=== PATIENT | female | born 1935 | race Caucasian/White ===

== ENCOUNTER 2023-06-29 21:50 | Emergency (ER) | payer MEDICARE, SELFPAY ==
[2023-06-29 22:14] VITALS: BP 120/68; PULSE 88; RESP 16; TEMP 36.7; O2SAT 97; BMI 29.2
--- NOTE | 2023-06-30 00:18 | ECG_ITS ---
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
--- NOTE | 2023-06-30 00:19 | XR_ITS ---
The [address] [address] Patient Name: AFSANEH MCCULLOUGH MRN: [id number] date: 1935 Sex: F Assigned Patient Location: ER Current Patient Location: ER Accession/Order Number: [id number] Exam Date: 06/30/2023 00:35 Report Date: 06/30/2023 00:50 At the request of: JOHN MARKER Procedure: XR chest 1V EXAM: XR chest 1V HISTORY: SOB COMPARISON: None. TECHNIQUE: One view of the chest was obtained. FINDINGS: The cardiac silhouette is enlarged. Aortic atherosclerotic disease is seen. The lungs are clear. There is no significant pneumothorax or pleural effusion. No acute osseous abnormality is seen. XR/XR chest 1V IMPRESSION: 1. Enlarged cardiac silhouette with clear lungs. Electronically authenticated by: Yanick CANAS Date: 06/30/2023 00:50
--- NOTE | 2023-06-30 00:20 | ED_ITS ---
HPI - General Adult General Chief complaint: Recheck/Abnormal Lab/Rx Stated complaint: LOWER EXTREMITY EDEMA, FLUID BUILD-UP Time Seen by Provider: 06/29/23 22:01 Source: patient and family Mode of arrival: Wheelchair Limitations comment: Pt hard of hearing History of Present Illness HPI narrative: His 87-year-old female with a history of congestive heart failure/fluid overload who is currently on 40 mg of torsemide daily and metolazone 3 times a week is brought to the emergency department by her daughter for evaluation of increased lower extremity swelling. The patient states she is having some leaking from the posterior aspect of her left lower leg and she has bruising to the right lateral leg which is new for her. The patient states she started noticing that her legs were leaking several days ago and her recliner chair was wet. She states that she has swelling from her feet all the way to her mid abdomen. She denies any nausea vomiting or diarrhea. She denies any chest pain. She had a medication change approximately 3 weeks ago when she was taken off of Lasix. She has not had any fever. She has not had any recent falls. Related Data Home Medications Medication Instructions Recorded Confirmed albuterol sulfate 2.5 mg/3 mL mg 06/29/23 (0.083 %) solution for nebulization apixaban 5 mg tablet (Eliquis) mg 06/29/23 atorvastatin 80 mg tablet mg 06/29/23 carvedilol 6.25 mg tablet mg 06/29/23 dapagliflozin propanediol 5 mg 5 mg PO DAILY 06/29/23 06/29/23 tablet (Farxiga) diltiazem HCl 120 mg mg PO 06/29/23 capsule,extended release 24 hr glipizide 10 mg tablet, extended mg PO 06/29/23 release 24 hr magnesium 200 mg tablet 200 mg PO DAILY 06/29/23 06/29/23 metolazone 5 mg tablet mg 06/29/23 potassium chloride 20 mEq meq PO 06/29/23 tablet,extended release(part/cryst) (Klor-Con M) torsemide 20 mg tablet mg 06/29/23 Allergies Allergy/AdvReac Type Severity Reaction Status Date / Time spironolactone Allergy Verified 06/29/23 22:21 Sulfa (Sulfonamide Allergy Verified 06/29/23 22:20 Antibiotics) Review of Systems ROS Status of ROS 10 or more systems reviewed and unremarkable except as noted in history and below Exam Narrative Exam Narrative: Nurses note and vital signs reviewed and patient is not hypoxic. General: Alert, nontoxic elderly female, no respiratory distress, no conversational dyspnea Skin: Warm, dry, no pallor noted. ecchymosis to the lateral aspect of the right lower leg Head: Normocephalic, atraumatic Eye: Normal conjunctiva, no drainage, EOMI. PERRL Ears, Nose, Mouth, and Throat: oral mucosa is moist. Cardiovascular: Regular Rate and Rhythm S1S2, No murmurs rubs or gallops appreciated no JVD appreciated Respiratory: Patient is in no distress, no accessory muscle use, Diminished breath sounds with mild crackles at bilateral lung bases Back: non-tender, no CVA tenderness bilaterally to percussion. GI: Normal bowel sounds, Obese, soft, nondistended, no signs of pitting edema of the abdominal wall Musculoskeletal: 3+ pitting edema of bilateral lower extremities. There is some serous drainage from the lateral aspect of the left lower leg. Edema does not appear to extend beyond the knees. Lower extremity pulses are brisk and equal bilaterally. Neurological: A&O x4, normal speech Psychiatric: Cooperative Constitutional Vital Signs, click to edit/add: Last Vital Signs Temp 98.0 F 06/29/23 22:14 Pulse 88 06/29/23 22:14 Resp 16 06/29/23 22:14 BP 120/68 06/29/23 22:14 Pulse Ox 97 06/29/23 22:14 O2 Del Method Room Air 06/29/23 22:14 Course Vital Signs Vital signs: Vital Signs Temperature 98.0 F 06/29/23 22:14 Pulse Rate 88 06/29/23 22:14 Respiratory Rate 16 06/29/23 22:14 Blood Pressure 120/68 06/29/23 22:14 Pulse Oximetry 97 06/29/23 22:14 Oxygen Delivery Method Room Air 06/29/23 22:14 Temperature 98.0 F 06/29/23 22:14 Pulse Rate 88 06/29/23 22:14 Respiratory Rate 16 06/29/23 22:14 Blood Pressure 120/68 06/29/23 22:14 Pulse Oximetry 97 06/29/23 22:14 Oxygen Delivery Method Room Air 06/29/23 22:14 Medical Decision Making [facility] Narrative Medical decision making narrative: This 87-year-old female with a history of congestive heart failure is brought emergency department by her daughter. Approximately 3 weeks ago she was taken off of her Lasix and placed on torsemide and metolazone. Since that time she has been having increasing swelling in her lower extremities. She has also been constipated. He takes MiraLAX daily but her daughter states she has been on it for an extended period of time and does not think it is working for her anymore. The patient's swelling in her legs has recently increased and she has been having some seepage from the left lower extremity. She also has a bruise in the right lower extremity. She is on Eliquis. He denies any chest pain. She has not had a fever. She has also been battling some chronic low back pain for which she has been taking Tylenol. She has normal vital signs. Her lungs are clear. EKG was a sinus rhythm with an irregular baseline versus a junctional rhythm with no acute changes. An IV was placed and she was medicated with 40 mg of IV Lasix. Routine labs are reviewed. She has a normal troponin. She has normal BNP. She has a normal white count and hemoglobin. Comprehensive metabolic profile was ordered. She has elevated glucose at 219. BUN is mildly elevated at 22 and a normal creatinine. Her troponin and BNP are both normal. Her CXr was reviewed by radiology and is negative for findings of fluid overload, pleural effusions or CHF. She was medicated in the ER with 650 mg tylenol for her chronic back pain. I explained to the patient and her daughter that I do not have any objective findings to admit her for. The patient and her daughter verbalize understanding of this and she is happy with a shot of Lasix for diuresis and will call her outreach and education social worker tomorrow to discuss resuming her Lasix and returning to her prior medical regimen. In the meantime her legs will be wrapped by the nursing staff. She will be discharged home with a prescription for Colace to use in addition to her Miralax for her constipation. Lab Data Labs: Lab Results 06/30/23 Range/Units 00:28 WBC 7.9 (4.0-11.0) 10^3/uL RBC 4.67 (4.20-5.40) 10^6/uL Hgb 13.4 (12.0-16.0) g/dL Hct 41.9 (36.0-48.0) % MCV 89.7 (81.0-99.0) fL MCH 28.7 (26.7-34.0) pg MCHC 32.0 (29.9-35.2) g/dL RDW 15.5 H (11.0-15.0) % Plt Count 208 (150-450) 10^3/uL MPV 10.4 (9.5-13.5) fL Neut % (Auto) 62.0 (43.0-75.0) % Lymph % (Auto) 25.4 (20.5-60.0) % [place] % (Auto) 10.4 (1.7-12.0) % Eos % (Auto) 1.0 (0.9-7.0) % Baso % (Auto) 0.8 (0.2-2.0) % Neut # (Auto) 4.9 (1.4-6.5) 10^3/uL Lymph # (Auto) 2.0 (1.2-3.8) 10^3/uL [place] # (Auto) 0.8 (0.3-0.8) 10^3/uL Eos # (Auto) 0.1 (0.0-0.7) 10^3/uL Baso # (Auto) 0.1 (0.0-0.1) 10^3/uL Abs Immat Gran (auto) 0.03 (0.00-0.03) 10^3/uL Imm/Tot Granulo (auto) 0.4 (0.0-0.5) % Sodium 131 L (136-145) mmol/L Potassium 3.8 (3.5-5.1) mmol/L Chloride 95 L (98-107) mmol/L Carbon Dioxide 32.7 H (21.0-32.0) mmol/L Anion Gap 7.1 BUN 22.0 H (7.0-18.0) mg/dL Creatinine 0.96 (0.55-1.02) mg/dL Est GFR ( Amer) >60 (>=60) Est GFR (Non-Af Amer) 55 L (>=60) BUN/Creatinine Ratio 22.9 Glucose 219 H (74-106) mg/dL Calcium 8.8 (8.5-10.1) mg/dL Total Bilirubin 1.2 H (0.2-1.0) mg/dL AST 26 (15-37) U/L ALT 38 (14-59) U/L Alkaline Phosphatase 128 H (46-116) U/L Troponin I High Sens 12.1 (4.0-51.3) pg/mL NT-Pro-B Natriuret Pep 815.0 (<=1800.0) pg/mL Total Protein 7.4 (6.4-8.2) g/dL Albumin 3.3 L (3.4-5.0) g/dL Globulin 4.1 g/dL Albumin/Globulin Ratio 0.8 ECG Data Attestation: I personally reviewed and interpreted this ECG as follows: (Sinus rhythm at 86 beats for minute with an irregular baseline due to patient move ment, moderate left axis deviation, no acute ST segment elevation or T-wave inversion) Discharge Plan Discharge Chief Complaint: Recheck/Abnormal Lab/Rx Clinical Impression: Bilateral edema of lower extremity, Constipation Patient Disposition: Home, Self-Care Time of Disposition Decision: 01:35 Condition: Good Prescriptions / Home Meds: No Action albuterol sulfate 2.5 mg /3 mL (0.083 %) solution for nebulization Eliquis 5 mg tablet Farxiga 5 mg tablet 5 mg PO DAILY atorvastatin 80 mg tablet carvedilol 6.25 mg tablet torsemide 20 mg tablet glipizide 10 mg tablet extended release 24hr PO metolazone 5 mg tablet potassium chloride [Klor-Con M20] 20 mEq tablet,ER particles/crystals PO diltiazem HCl 120 mg capsule,extended release 24hr PO magnesium 200 mg tablet 200 mg PO DAILY Instructions: Leg Edema (ED), Constipation (ED), High Fiber Diet (ED) Additional Instructions: Call your outreach and education social worker to discuss your diuretics. Please explained that the Lasix was working better for you. Keep your legs wrap to help decrease the fluid and your legs and keep them elevated when you are not walking. Stand Alone Forms: Portal Instructions Referrals: CAMILO RUTHERFORD [Primary Care Provider] - 1 week
[2023-06-30 00:39] LABS: Basophils Absolute Auto 0.1 10^3/uL (0.0-0.1); Basophils Percent Auto 0.8 % (0.2-2.0); Eosinophils Absolute Auto 0.1 10^3/uL (0.0-0.7); Hematocrit 41.9 % (36.0-48.0); Hemoglobin 13.4 g/dL (12.0-16.0); Immature Granulocytes Abs Auto 0.03 10^3/uL (0.00-0.03); Immature Granulocytes Pct Auto 0.4 % (0.0-0.5); Lymphocytes Percent Auto 25.4 % (20.5-60.0); Mean Corpuscular Hemoglobin 28.7 pg (26.7-34.0); Mean Corpuscular Volume 89.7 fL (81.0-99.0); Mean Platelet Volume 10.4 fL (9.5-13.5); Monocytes Absolute Auto 0.8 10^3/uL (0.3-0.8); Monocytes Percent Auto 10.4 % (1.7-12.0); Neutrophils Absolute Auto 4.9 10^3/uL (1.4-6.5); Platelet Count 208 10^3/uL (150-450); Red Blood Count 4.67 10^6/uL (4.20-5.40); Red Cell Distribution Width 15.5 % (11.0-15.0); White Blood Count 7.9 10^3/uL (4.0-11.0)
[2023-06-30 01:08] LABS: Alanine Aminotransferase 38 U/L (14-59); Albumin Globulin Ratio 0.8; Albumin Level 3.3 g/dL (3.4-5.0); Alkaline Phosphatase 128 U/L (46-116); Anion Gap 7.1; Aspartate Amino Transferase 26 U/L (15-37); BUN Creatinine Ratio 22.9; Bilirubin Total 1.2 mg/dL (0.2-1.0); Calcium 8.8 mg/dL (8.5-10.1); Carbon Dioxide 32.7 mmol/L (21.0-32.0); Chloride 95 mmol/L (98-107); Estimated GFR (African America >60 (>=60); Estimated GFR (Non-African Ame 55 (>=60); Globulin 4.1 g/dL; Glucose 219 mg/dL (74-106); Potassium 3.8 mmol/L (3.5-5.1); Sodium 131 mmol/L (136-145); Total Protein 7.4 g/dL (6.4-8.2); Troponin I High Sensitivity 12.1 pg/mL (4.0-51.3)
[2023-06-30] MEDS: FUROSEMIDE 40 MG/4 ML VIAL IVP (01:45)
[2023-06-30] MEDS: ACETAMINOPHEN 325 MG TABLET 650 MG PO (01:45)
== END 2023-06-30 02:16 | disposition home or self-care (01) ==
PROVIDERS: Emergency Provider Emergency Medicine; PCP Family Medicine
DX: R60.0 Localized edema (principal); I50.9 Heart failure, unspecified; Z79.01 Long term (current) use of anticoagulants; Z79.899 Other long term (current) drug therapy; Z79.84 Long term (current) use of oral hypoglycemic drugs; K59.00 Constipation, unspecified; E66.9 Obesity, unspecified; Z68.29 Body mass index [BMI] 29.0-29.9, adult
CPT/HCPCS: 36415; 71045; 80053; 83880; 84484; 85025; 93005; 96374; 99285